=== PATIENT | male | born 2000 | race Hispanic/Latino ===

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

== ENCOUNTER 2019-04-30 21:06 | Emergency (ER) | payer OTHER, SELFPAY ==
[2019-04-30] MEDS ORDERED: Ibuprofen 200 MG TAB ONE (22:56)
== END 2019-04-30 23:00 | disposition home or self-care (01) ==
LOC: ERS 21:06
DX: S01.512A Laceration without foreign body of oral cavity, initial encounter (principal); F17.210 Nicotine dependence, cigarettes, uncomplicated; W22.8XXA Striking against or struck by other objects, initial encounter
CPT/HCPCS: 99283

== ENCOUNTER 2023-02-07 10:25 | Day surgery (SDC) | payer SELFPAY ==
[2023-02-03 11:23] VITALS: BMI 29.0
[2023-02-07] MEDS ORDERED: Fentanyl 250 MCG/5 ML VIAL ONE (11:34)
[2023-02-07] MEDS ORDERED: Dexmedetomidine 200 MCG/2 ML VIAL ONE (11:34)
[2023-02-07] MEDS ORDERED: Midazolam HCl 2 mg/2 ml Vial ONE ×2 (11:34→13:55)
[2023-02-07] MEDS ORDERED: Sodium Chloride 0.9% 100 ML ONE (12:06)
[2023-02-07] MEDS ORDERED: CEFAZOLIN 2 GM VIAL ONE (12:06)
[2023-02-07] MEDS ORDERED: Lidocaine 1% PF 5 ML VIAL ONE (12:14)
[2023-02-07] MEDS ORDERED: PROPOFOL 200 MG/20 ML VIAL ONE (12:14)
[2023-02-07] MEDS ORDERED: Ondansetron PF 4 MG/2 ML Vial ONE (12:14)
[2023-02-07] MEDS ORDERED: Bupivacaine HCl 0.5%/Epinephrine 1:200,000/PF 30 ml Vial ONE (13:15)
[2023-02-07] MEDS ORDERED: HYDROcodone/Acetaminophen 5/325 mg Tablet ONE (14:39)
== END 2023-02-07 15:35 | disposition home or self-care (01) ==
LOC: SDC 10:25
PROVIDERS: ATTEND Orthopaedic Surgery
PROC: 0QSP04Z Reposition Left Metatarsal with Internal Fixation Device, Open Approach (ICD-10-PCS; principal; 2023-02-07)
DX: S93.325A Dislocation of tarsometatarsal joint of left foot, initial encounter (principal); W20.8XXA Other cause of strike by thrown, projected or falling object, initial encounter
CPT/HCPCS: C1713; J2250; J2405; J2704; J3010; J3490